=== PATIENT | male | born 1985 | race Caucasian/White ===

== ENCOUNTER → 2016-08-26 | Outpatient (CLI) | payer OTHER ==
[2016-08-26 10:16] LABS: URINE APPEARANCE CLEAR (CLEAR); URINE BILIRUBIN NEG (NEG); URINE COLOR YELLOW; URINE EPITHELIAL CELL AUTO 0-5 /lpf (0-5); URINE NITRITE NEG (NEG); URINE PH 7.5 (4.5-7.5); URINE SPECIFIC GRAVITY 1.006 (1.000-1.030); UROBILINOGEN NEG (NEG); ZZUR CULT IF INDIC CLEAN CATCH NO
[2016-08-26 10:24] LABS: MANUAL MICROSCOPIC REQUIRED? NO; REVIEW REQ? NO
== END | disposition home or self-care (01) ==
LOC: C.LAB1850 08:43
PROVIDERS: ATTEND Internal Medicine Pulmonary Disease
DX: Z00.00 Encounter for general adult medical examination without abnormal findings (principal)